=== PATIENT | female | born 1960 | race African-American/Black ===

== ENCOUNTER 2016-08-06 08:57 | Day surgery (SDC) | payer OTHER ==
[~2016-08-06 08:57] MED LIST: EPINEPHRINE INJ 1 MG/10 ML DISP.SYRIN ONE; FLUMAZENIL INJ 0.5 MG/5 ML VIAL IV ONE; GLYCOPYRROLATE INJ 0.4 MG/2 ML VIAL ONE; MIDAZOLAM 2 MG/2 ML INJ ONE; NALOXONE HCL INJ/PF 0.4 MG/1 ML SDV ONE; ONDANSETRON HCL INJ/PF 4 MG/2 ML SDV ONE
[2016-08-06] MEDS: FENTANYL CITRATE INJ/PF 100 MCG/2 ML AMPUL ONE ×2 (09:43→09:50)
[2016-08-06 10:47] LABS: ABSOLUTE EOSINOPHILS # (AUTO) 0.2 10^3/uL (0.0-0.6); ABSOLUTE LYMPHOCYTES (AUTO) 1.9 10^3/uL (0.5-4.7); ABSOLUTE MONOCYTES (AUTO) 0.3 10^3/uL (0.1-1.4); ABSOLUTE NEUT (AUTO) 3.2 10^3/uL (1.7-8.2); BASOPHILS % (AUTO) 0.5 % (0-2); EOSINOPHILS % (AUTO) 2.9 % (0-6); HEMATOCRIT 34.6 % (36.0-47.0); HEMOGLOBIN 11.3 g/dL (12.0-15.5); HGB HCT DIFFERENCE -0.7; LYMPHOCYTES % (AUTO) 33.6 % (13-45); MEAN CORPUSCULAR HEMOGLOBIN 24.9 pg (27.0-33.4); MEAN CORPUSCULAR HGB CONC 32.8 g/dL (32.0-36.0); MEAN CORPUSCULAR VOLUME 76 fl (80-97); MONOCYTES % (AUTO) 5.8 % (3-13); RED BLOOD COUNT 4.55 10^6/uL (3.72-5.28); RED CELL DISTRIBUTION WIDTH 15.2 % (11.5-14.0); SEGMENTED NEUTROPHILS % (AUTO) 57.2 % (42-78); WHITE BLOOD COUNT 5.6 10^3/uL (4.0-10.5)
[2016-08-06 11:00] VITALS: BP 103/65
[2016-08-06 11:00] LABS: ALANINE AMINOTRANSFERASE 28 U/L (9-52); ALKALINE PHOSPHATASE 60 U/L (38-126); AMYLASE 57 U/L (30-110); ANION GAP 12 (5-19); ASPARTATE AMINO TRANSFERASE 20 U/L (14-36); BILIRUBIN,DIRECT 0.1 mg/dL (0.0-0.4); BILIRUBIN,TOTAL 0.3 mg/dL (0.2-1.3); BLOOD UREA NITROGEN 15 mg/dL (7-20); CALCIUM 9.1 mg/dL (8.4-10.2); CARBON DIOXIDE 27 mmol/L (22-30); CHLORIDE 103 mmol/L (98-107); CREATININE RESULT 0.59 mg/dL (0.52-1.25); GLUCOSE 123 mg/dL (75-110); LIPASE 66.7 U/L (23-300); TOTAL PROTEIN 6.4 g/dL (6.3-8.2)
[2016-08-06 11:31] LABS: CARCINOEMBRYONIC ANTIGEN 1.3 ng/mL (<3.0)
--- NOTE | 2016-08-06 12:11 | DISCHARGE SUMMARY E ---
Discharge Summary NAME: TONEY TELLO : 1960 AGE: 56Y ADMITTED: 08/06/2016 DISCHARGED: 08/06/2016 The patient is 56, underwent upper scope today for dysphagia, upper abdominal pain. Today's upper scope showed no ulcers, no malignancy. The esophagus shows no stricture, mild esophagitis, mild gastritis, mild duodenitis. The patient does have a history of polyps. We will go ahead and do lab studies. We will hold her aspirin for 3 days. Continue , Janumet, and Diovan. FINAL DIAGNOSES: 1. Esophagitis. 2. Gastritis. 3. Duodenitis. 4. History of colon polyps. Will plan colonoscopy in the next few weeks. 5. Awaiting lab studies. DICTATING PHYSICIAN: SUSIE MARQUEZ M.D. [id number] PHY#: [id number] ID: [id number] JOB#: [id number] ACCT: [id number] cc:[facility] KEVIN HALL M.D., MAHMOUD M.D. >
--- NOTE | 2016-08-06 12:13 | HISTORY AND PHYSICAL E ---
History and Physical NAME: TONEY TELLO : 1960 AGE: 56Y ADMITTED: 08/06/2016 ROOM: CHIEF COMPLAINT: Exacerbation of reflux. HISTORY: The patient is known to me since 2001. Gallbladder ultrasound shows contraction, otherwise normal. Ultrasound of kidneys is negative. The patient presented with exacerbation of dysphagia. The patient presented at this time regarding upper endoscopy. The patient did have colonoscopy showing polyps. She does need a followup colon. At this time, she is for upper endoscopy. The patient did have colonoscopy and polypectomy in 2006, tubular adenoma. She did have esophagitis, gastritis, duodenitis on upper scope in 2006. The patient did have a colonoscopy showing polyp in her sigmoid, transverse colon polyp, ascending colon polyps. Exacerbation of reflux. Another colonoscopy done in the year 2010. PAST MEDICAL HISTORY: History of hypertension, on Diovan. PAST SURGICAL HISTORY: C section. MEDICATIONS: 1. Diovan. 2. Janumet. 3. [place]-3. 4. Vitamin E. 5. Garlic. ALLERGIES: She has no known allergies. FAMILY HISTORY: Her father has history of diabetes. Her mom has history of hypertension. REVIEW OF SYSTEMS: CARDIAC: Hypertension. GASTROINTESTINAL: Reflux. History of polyps. PHYSICAL EXAMINATION: VITAL SIGNS: Blood pressure 120/80, pulse 80, respirations 18, temp is 98. HEAD, EYES, EARS, NOSE, THROAT: Normal. ABDOMEN: Soft. NEUROLOGIC: Exam negative. CONCLUSION: Exacerbation of reflux. PLAN: Upper endoscopy. DICTATING PHYSICIAN: SUSIE MARQUEZ M.D. [id number] [id number] Y#: [id number] ID: [id number] JOB#: [id number] ACCT: [id number] cc:, [facility] SUSIE MARQUEZ M.D. >
--- NOTE | 2016-08-06 12:15 | OPERATIVE REPORT E ---
Operative Report NAME: TONEY TELLO : 1960 AGE: 56Y DATE OF SURGERY: ROOM: PREOPERATIVE DIAGNOSES: Dysphagia, reflux with some esophagitis, mild, gastritis, mild, duodenitis, mild. OPERATIONS: Esophagoscopy, gastroscopy, duodenoscopy. SURGEON: SUSIE MARQUEZ M.D. ANESTHESIA: Versed 3, fentanyl 100. TISSUE REMOVED OR ALTERED: Gastric biopsy for H. pylori. PROCEDURE: The baby scope passed under guided vision. No difficulties. Esophagoscopy junction at 40. No stricture. Mild esophagitis. Gastroscopy, no ulcers. Mild gastritis. Duodenoscopy, mild duodenitis with no evidence of ulcers. The patient was discharged to her room in stable condition. CONCLUSION: Mild esophagitis, mild gastritis, mild duodenitis. Gastric biopsy obtained. DICTATING PHYSICIAN: SUSIE MARQUEZ M.D. [id number] PHY#: [id number] ID: [id number] JOB#: [id number] ACCT: [id number] cc:SUSIE MARQUEZ M.D. >
== END 2016-08-06 11:00 | disposition home or self-care (01) ==
LOC: END 08:57
PROVIDERS: ATTEND Specialist
PROC: 0DB68ZX Excision of Stomach, Via Natural or Artificial Opening Endoscopic, Diagnostic (ICD-10-PCS; principal; 2016-08-06 09:00)
DX: K21.0 Gastro-esophageal reflux disease with esophagitis (principal); K29.50 Unspecified chronic gastritis without bleeding; K29.80 Duodenitis without bleeding; I10 Essential (primary) hypertension; Z79.899 Other long term (current) drug therapy; Z86.010 Personal history of colon polyps
CPT/HCPCS: 43239; 36415; 82962; 82150; 82378; 83690; 85025; 80053; 88342 ×2; 88305 ×2; J2250; J3010; J2405; J0171; J2310; J3490